=== PATIENT | male | born 1970 | race Hispanic/Latino ===

== ENCOUNTER 2017-07-04 13:59 | Observation (INO) | payer OTHER ==
[2017-07-04] MEDS ORDERED: ACETAMINOPHEN 650MG/RECT SUPP PR PRN (14:13)
[2017-07-04] MEDS ORDERED: ONDANSETRON 4 MG/2 ML VIAL IV PRN (14:13)
[2017-07-04 14:41] VITALS: BMI 24.0
[2017-07-04] MEDS: ENOXAPARIN 40 MG/0.4 ML SQ SCH (15:25)
[2017-07-04] MEDS: D5.45NS W/KCL 20MEQ 1,000 ML IV SCH ×2 (15:25→23:58)
--- NOTE | 2017-07-04 15:37 | RAD REPORT ---
EXAM DESCRIPTION: RAD - Chest Single View - 07/04/2017 3:08 pm CLINICAL HISTORY: Shortness of breath COMPARISON: None. TECHNIQUE: AP portable chest image was obtained 1458 hours . FINDINGS: No failure, infiltrate or suspicious mass. Numerous calcified granulomas are present. Trac hea is midline. Heart and vasculature are normal. No measurable pleural effusion and no pneumothorax. No gross bony abnormality seen. No acute aortic findings suspected. IMPRESSION: No acute cardiopulmonary process.
[2017-07-04 15:45] LABS: Amylase Level 61 U/L (28-100); Lipase 17 U/L (22-51)
[2017-07-04] MEDS: CIPROFLOXACIN 400mg IV 400 MG/200 ML BAG IV SCH (16:00)
[2017-07-04 16:11] LABS: Urine Appearance CLEAR; Urine Bilirubin NEGATIVE (NEG); Urine Blood NEGATIVE (NEG); Urine Color YELLOW; Urine Glucose NEGATIVE (NEG); Urine Protein NEGATIVE (NEG); Urine Specific Gravity 1.015 (1.005-1.030); Urine Urobilinogen 0.2 mg/dL (0.2-1.0); Urine pH 5.5 (5.0-7.0)
--- NOTE | 2017-07-04 16:25 | EKG ---
Test Date: 2017-07-04 Test Time: 15:03:15 Chrome Polisher: ZAHIDA MEASUREMENT RESULTS: Intervals: Rate: 71 ID: [id number] QRSD: 88 QT: 384 QTc: 417 [place]: P: 57 ID: [id number] QRS: 61 T: 3 INTERPRETIVE STATEMENTS: Normal sinus rhythm Normal ECG No previous ECG available for comparison Electronically Signed On 07-04-17 16:24:19 CDT by Everton Reed
[2017-07-04 16:41] LABS: Urine Microscopic Reflex NO UMIC
[2017-07-04] MEDS: METRONIDAZOLE 500mg IVPB 500 MG/100 ML BAG IV SCH (16:55)
[2017-07-04] MEDS ORDERED: INFLUENZA VACCINE (for 3y+) 0.5 ML DOSE IMVAC ONE (17:00)
[2017-07-04] MEDS: FAMOTIDINE 20 MG/2 ML VIAL IV SCH (21:45)
--- NOTE | 2017-07-04 21:48 | CON ---
Date of Consultation: 07/04/2017 Brief History Of Present Illness: The patient is a 46-year-old male, who presents with appr oximately 3 days of abdominal pain, distention, nausea, and vomiting associated with diarrhea. He st ates that when he ate spicy foods over this last weekend, he is unsure if the food was tainted or not , but it was something hot and spicy and he shortly after developed abdominal pain, distention, bloat ing. He has had 2 similar episodes before in the past year, but could not associated food particular ly with those episodes. He was not hospitalized at that time. At this particular occasion, his naus ea, vomiting, and diarrhea became so persistent. His abdominal pain increased significantly in the idline to such a point he went to [facility] where he ultimately had a workup performed. U ltimately, he was worked up at that facility and transferred here for higher level of care. Past Medical History: Negative. Past Surgical History: Tonsillectomy. Allergies: NO ALLERGIES. 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 He smoked over 20 years ago. Denies recreational drug u se. Family History: Noncontributory. Review of Systems: A 10-point review of systems other than HPI denies. Physical Examination: Vital Signs: At the time of my examination, his BMI is 24.0. General: He is awake, alert, oriented. Psychiatric: He is appropriate and conversive. He answers questions well and appears in no apparent distress. HEENT: Normocephalic. Sclerae anicteric. Mucous membranes moist. His oropharynx is clear. Neck: Supple. No JVD. Chest: Normal expansion and excursion. Cardiovascular: Regular rate and rhythm. Pulmonary: Clear to auscultation bilaterally. Abdomen: Soft with mild midline tenderness to palpation. Mild distention. No rebound. No guarding . No focal peritonitis. No peritoneal signs of any kind. He does have a left inguinal hernia, whic h has minimal tenderness to palpation. This is not acutely tender as well, and there are no peritone al signs in this region. Extremities: No clubbing, cyanosis, or edema. Laboratory Data: Laboratory exam from [facility] reveals white blood cell count of 7.5, his hemoglobin is 15.6, hematocrit 45.8, platelets were 325. His sodium was 135, potassium 3.9, CO2 30, chloride 102, glucose 97, calcium 8.8, BUN 12, creatinine 0.9, alkaline phosphatase 84, ALT 33, AST is 34, T bilir ubin is 0.8. He had a CT scan performed of the abdomen and pelvis, which was officially read as flui d distention of the small bowel with mild colonic wall thickening, concerning for acute enterocolitis , borderline dilated fluid-filled small bowel loops favored mild ileus; however, partial small bowel obstruction, left inguinal hernia containing sigmoid colon without evidence of colonic obstruction, l eft nephrolithiasis, 2 mm right middle lobe pulmonary nodule. Consider followup. Assessment And Plan: This is a 46-year-old male, who presents with signs and symptoms of gastroenter itis and ileus. 1.IV fluid hydration. 2.Antibiotic coverage. 3.Serial abdominal exams. 4.I have explained the risks, benefits, and alternatives of the above stated plan. The patient agre es to proceed as indicated. Thank you for this interesting consult. NADEEN/LONDON Voice ID: [id number] Report ID: [id number]
[2017-07-04 21:56] VITALS: O2SAT 96
--- NOTE | 2017-07-05 01:00 | HP ---
Date of Admission: 07/04/2017 Chief Complaint: Abdominal pain and diarrhea. Code Status: Full. History Of Present Illness: The patient is a 46-year-old male with no significant past medical histo ry, who was transferred from [facility] as a direct admission for colitis and small-bowel o bstruction. The patient was in his usual state of health until couple days prior to admission when t he patient started having epigastric abdominal pain that was nonradiating, constant, sharp, associate d with some diarrhea. The patient has had multiple episodes, nonbloody, and denies any nausea, vomit ing, fever, or chills. No travel outside the country or unusual foods. The patient denies any recen t antibiotic use or history of previous abdominal surgeries. The patient came into the ER in [place], was evaluated, and was found to have small bowel obstruction, and enterocolitis on CT abdomen. White count was normal. No electrolyte abnormalities. The patient was given IV fluids and transferred to [facility] for further evaluation and treatment. When seen on the floor, the patient was awake, alert, oriented x3, in some mild distress. Past Medical History: None. Past Surgical History: Tonsillectomy. Allergies: NO KNOWN DRUG ALLERGIES. Medications: No home medications. Family History: Mother has hypertension and heart disease. Social History: The patient denies any tobacco use or illicit drug use. The patient does drink kendall ral beers on the weekends. Review of Systems: An 11-point system reviewed, negative except as above. Physical Examination: Vital Signs: Stable, afebrile. General: Awake, alert, oriented x3, in some mild distress. HEENT: Normocephalic and atraumatic. PERRLA. EOMI. Dry mucous membranes. Oropharynx is clear. N ormal dentition. Conjunctivae are anicteric. Neck: Supple. No JVD. Trachea midline. CV: S1, S2. No murmurs. Regular rate and rhythm. Peripheral pulses are present bilaterally. Respiratory: Clear to auscultation bilaterally. No wheezing. No stridor or use of accessory muscle s. Gastrointestinal: Abdomen is soft. Mild tenderness to palpation in the epigastric region. No rebou nd or guarding. No palpable masses. No thyromegaly. Extremities: No clubbing, cyanosis, or edema. No calf tenderness. Neuro: Cranial nerves 2 through 12 intact grossly. No focal neurological deficit. Strength is 5/5 bilateral upper and lower extremities. Speech is normal. 2+ deep tendon reflexes. Integumentary: No rashes. Normal skin turgor. Laboratory Data: CT scan abdomen and pelvis without contrast shows fluid distention of small bowel w ith mild colonic wall thickening concerning for acute enterocolitis, borderline dilated and fluid-dank led small bowel loops favor mild ileus or partial small bowel obstruction, left inguinal hernia conta ining a segment of colon without evidence of colonic obstruction, left nephrolithiasis, 2 mm right mi ddle lobe pulmonary nodule. WBC 7.5, H and H 15.6 and 45.8, platelets 325. Sodium 135, potassium 3. 9, CO2 30, chloride 102, glucose 97, calcium 8.8, BUN 12, creatinine 0.9, alkaline phosphatase 84, AL T 33, AST 34, total bilirubin 0.8, albumin 3.9, total protein 7.9. Assessment And Plan: A 46-year-old male with: 1.Small-bowel obstruction. 2.Enterocolitis. 3.We will start on IV antibiotics and consult surgery, Dr. Lechuga covering for Dr. Ritchie. 4.Left nephrolithiasis. 5.A 2 mm right middle lobe pulmonary nodule. We will need follow up CT in the 3-6 months. 6.Alcohol dependence. Plan: Admit the patient to Med-Surg, place as observation. We will obtain a lipase level. JUWAN Voice ID: [id number]
[2017-07-05] MEDS: D5.45NS W/KCL 20MEQ 1,000 ML IV SCH (05:21)
[2017-07-05 05:33] LABS: Absolute Lymphocytes (CBC) 2.8 K/uL (0.7-4.9); Absolute Monocytes 0.6 K/uL (0.1-1.3); Absolute Neutrophil 2.3 K/uL (1.8-8.0); Basophils % 0.6 % (0-1.3); Eosinophils % 4.9 % (0-4.4); Hematocrit 38.5 % (39.6-49.0); Lymphocytes % 46.6 % (15.3-44.8); MCH 28.8 pg (27.0-35.0); MCV 86.2 fL (80-100); MPV 8.8 fL (7.6-11.3); Monocytes % 10.2 % (3.3-12.3); RBC Red Blood Cell Count 4.47 M/uL (4.33-5.43)
[2017-07-05 05:55] LABS: ALT/SGPT 24 IU/L (10-60); AST/SGOT 22 IU/L (10-42); Albumin 3.1 g/dL (3.2-5.5); Alkaline Phosphatase 58 IU/L (42-121); BUN Blood Urea Nitrogen 9 mg/dL (6-20); Bicarbonate 28 mEq/L (21-31); Bilirubin Total 0.6 mg/dL (0.3-1.2); Glomerular Filtration Rate > 90 mL/min (=/>90); Glucose Level 97 mg/dL (65-120); Magnesium 1.7 mg/dL (1.8-2.5); Phosphorus 2.9 mg/dL (2.5-4.3); Potassium 3.9 mEq/L (3.6-5.0); Protein, Total 5.9 g/dL (6.0-8.3); Sodium Level 137 mEq/L (135-145)
[2017-07-05] MEDS ORDERED: MAGNESIUM SULFATE 1 gm IVPB 1 GM/100 ML BAG IV ONE (06:00)
[2017-07-05] MEDS ORDERED: POTASSIUM CL SA 10 MEQ TAB PO ONE (06:01)
[2017-07-05] MEDS ORDERED: KCL 20 MEQ/100 mL IVPB 20 MEQ/100 ML BAG IV SCH (09:00)
--- NOTE | 2017-07-05 09:22 | P.PN ---
Subjective Date of Service: 07/05/17 Chief Complaint: Enteritis Subjective: Improving (Patient passing gas, much less pain, had BM as well. no nausea or emesis) Physical Examination - Vital Signs Temperature: 98.2 F Blood Pressure: 115/78 Pulse: 63 Respirations: 16 Pulse Ox (%): 95 - Physical Exam General: Alert, In no apparent distress, Cooperative HEENT: Atraumatic, Mucous membr. moist/pink Gastrointestinal: Soft and benign, Non-distended, No ascites, No tenderness, No masses, No rebound, No guarding Neurological: Normal gait, Normal speech - Studies Laboratory Data (last 24 hrs) 07/05/17 04:17: Sodium 137, Potassium 3.9, BUN 9, Creatinine 0.89, Glucose 97, Phosphorus 2.9, Magnesium 1.7 L, Total Bilirubin 0.6, AST 22, ALT 24, Alkaline Phosphatase 58 07/05/17 04:17: WBC 6.1, Hgb 12.8 L, Hct 38.5 L, Plt Count 297 07/04/17 15:05: Amylase 61, Lipase 17 L Assessment And Plan - Current Problems (Diagnosis) (1) Enteritis Current Visit: Yes Status: Acute Plan: clear liquid diet - advance - continue medical management - ambulate - serial exams
[2017-07-05] MEDS: METRONIDAZOLE 500mg IVPB 500 MG/100 ML BAG IV SCH ×2 (10:24)
[2017-07-05] MEDS: FAMOTIDINE 20 MG/2 ML VIAL IV SCH (10:24)
[2017-07-05] MEDS: CIPROFLOXACIN 400mg IV 400 MG/200 ML BAG IV SCH (10:24)
[2017-07-05] MEDS: ENOXAPARIN 40 MG/0.4 ML SQ SCH (10:24)
[2017-07-05 13:19] VITALS: BP 122/80; TEMP 98
[2017-07-05] MEDS ORDERED: INFLUENZA VACCINE (for 3y+) 0.5 ML DOSE IMVAC ONE (15:00)
--- NOTE | 2017-07-06 04:01 | DS ---
Date of Discharge: 07/05/2017 Procedure: None. Admitting Diagnosis: 1.Small-bowel obstruction. 2.Enterocolitis. 3.Nephrolithiasis. 4.A 2 mm right middle lobe pulmonary nodule. 5.Alcohol dependence. Discharge Diagnoses: 1.Ileus. 2.Hypomagnesemia, replace. 3.Enterocolitis, on antibiotics. 4.Left nephrolithiasis, nonobstructive. 5.A 2 mm right middle lobe pulmonary nodule, need follow up CT scan in 3-6 months. 6.Alcohol dependence, counseled. Hospital Course: The patient is a 46-year-old male with no significant past medical history, who was admitted directly from this emergency room for colitis and small-bowel obstruction. The patient was started on IV fluids, IV pain medications. He was kept n.p.o. The patient did have some diarrhea, which also improved. The patient's abdominal pain and diarrhea resolved. He was having normal calib er stool. He was able to ambulate. The patient was started on clear liquid diet, which he tolerated . His diet was advanced and he did well. The patient's lab work was essentially normal except for m agnesium level, which showed 1.7. Magnesium was replaced. The patient was seen by surgeon, Dr. Reinier hartley, who agreed with conservative treatment and nonsurgical treatment. The patient was then cleared for discharge once he was tolerating his diet. His pain had resolved. He was discharged home in sta ble condition. Activity: As tolerated. Medications: As per medication reconciliation list. Diet: [place] diet for the next few days. Return to ER for worsening condition. Follow up with Dr. Lucero dsouza per his recommendation. Followup: Follow up with primary care physician in 2-3 days. If no PCP, establish care with PCP in the area. Physical Examination: General: Awake, alert, oriented, no acute distress. CV: S1, S2. No murmurs. Respiratory: Clear to auscultation bilaterally. No wheezing. Abdomen: Soft, nontender, nondistended. Positive bowel sounds. No guarding or rigidity. Extremities: No clubbing, cyanosis, or edema. Neurologic: Nonfocal. SA/MODL Voice ID: [id number] Report ID: [id number]
== END 2017-07-05 15:20 | disposition home or self-care (01) ==
LOC: 2ND 13:59
PROVIDERS: ADMIT Family Medicine; ATTEND Family Medicine
DX: K56.7 Ileus, unspecified (principal); E83.42 Hypomagnesemia; K52.9 Noninfective gastroenteritis and colitis, unspecified; N20.0 Calculus of kidney; R91.1 Solitary pulmonary nodule; F10.20 Alcohol dependence, uncomplicated
CPT/HCPCS: 36415; 71045; 80053; 81003; 82150; 83690; 83735; 84100; 85025; 87045; 87046; 87493; 89055; 93005; 94760; G0378; J0744; J1650; J3475